=== PATIENT | female | born 1995 | race Caucasian/White ===

== ENCOUNTER 2022-05-10 01:08 | Emergency (ER) | payer BC ==
[~2022-05-10] VITALS: Ht 180.3 cm; Wt 111.4 kg
[2022-05-10 01:24] VITALS: TEMP 97.6
[2022-05-10] MEDS ORDERED: ROBAXIN 75750 MG/TAB PO (01:37)
[2022-05-10 02:44] VITALS: BP 126/68; PULSE 83
== END 2022-05-10 02:46 | disposition home or self-care (01) ==
LOC: COL.ER 01:08
DX: M54.50 Low back pain, unspecified (principal)